=== PATIENT | male | born 1985 | race Two or more races ===

== ENCOUNTER 2021-09-14 21:39 | Emergency (ER) | payer OTHER ==
[~2021-09-14] VITALS: Ht 167.6 cm; Wt 95.3 kg
[2021-09-15] MEDS ORDERED: LIDOCAINE 1% HCL (LOCAL ANESTH.) INJ 20ML MDV ID ONE ×2 (00:15→01:45)
[2021-09-15 00:57] VITALS: BP 134/77
[2021-09-15] MEDS ORDERED: LIDOCAINE 1%HCL (LOCAL ANESTH) 10 ML MDV ONE (01:28)
[2021-09-15] MEDS ORDERED: CEPH-509 PO (03:36)
== END 2021-09-15 04:53 | disposition home or self-care (01) ==
LOC: EDBD → ER 21:39
DX: S62.623A Displaced fracture of middle phalanx of left middle finger, initial encounter for closed fracture (principal); W26.8XXA Contact with other sharp object(s), not elsewhere classified, initial encounter; Y93.89 Activity, other specified; Y92.89 Other specified places as the place of occurrence of the external cause; Y99.8 Other external cause status
CPT/HCPCS: 12001; 73140; 99283; J2001

== ENCOUNTER 2021-09-17 15:05 | Emergency (ER) | payer OTHER ==
[~2021-09-17] VITALS: Ht 167.6 cm; Wt 99.8 kg
[~2021-09-17 15:05] MED LIST: CEPH-509 PO
[2021-09-17] MEDS ORDERED: cefTRIAXone W LIDOCAINE 1 GM IM IM ONE (18:45)
[2021-09-17 19:06] VITALS: BP 130/75
[2021-09-17] MEDS ORDERED: AMOX500T86 PO (19:13)
== END 2021-09-17 19:44 | disposition home or self-care (01) ==
LOC: ER 15:05
DX: L03.012 Cellulitis of left finger (principal); S61.213D Laceration without foreign body of left middle finger without damage to nail, subsequent encounter
CPT/HCPCS: 96372; 99283; J0696

== ENCOUNTER 2021-10-03 15:57 | Emergency (ER) | payer OTHER ==
[~2021-10-03] VITALS: Ht 182.9 cm; Wt 95.3 kg
[~2021-10-03 15:57] MED LIST changes: +AMOX500T86 PO
[2021-10-03 16:00] VITALS: BP 139/66
== END 2021-10-03 16:49 | disposition home or self-care (01) ==
LOC: EDBD 15:57 → ER 15:57
DX: S61.213D Laceration without foreign body of left middle finger without damage to nail, subsequent encounter (principal); W26.8XXD Contact with other sharp object(s), not elsewhere classified, subsequent encounter